=== PATIENT | female | born 1980 | race Caucasian/White ===

== ENCOUNTER 2021-09-12 15:00 | Emergency (ER) | payer OTHER ==
[2021-09-12 16:08] LABS: BILIRUBIN NEGATIVE (NEGATIVE); BLOOD 2+ Ery/uL (NEGATIVE); CLARITY CLEAR (CLEAR); COLOR YELLOW (YELLOW); GLUCOSE (U) NORMAL (NORMAL); LEUKOCYTES 3+ Leu/uL (NEGATIVE); NITRITE NEGATIVE (NEGATIVE); PROTEIN NEGATIVE (NEGATIVE); SPECIFIC GRAVITY <=1.005 (1.001-1.030); UROBILINOGEN 0.2 mg/dL (0.2-1.0); pH 6.5 (5.0-9.0)
[2021-09-12 16:18] LABS: BASOPHIL 0.7 % (0-2); EOSINOPHIL 1.1 % (0-5); HCT 37.8 % (37.0-47.0); HGB 12.7 g/dl (12.5-16.0); LYMPHOCYTE 28.5 % (15-48); MCH 34.9 pg (25.0-31.0); MCHC 33.6 g/dL (32.0-36.0); MCV 103.8 fL (78.0-100.0); MONOCYTE 4.9 % (0-12); MPV 9.1 fL (6.0-9.5); NEUTROPHIL 64.2 % (41-80); NRBC 0; PLT 184 K/uL (150-400); RBC 3.64 M/uL (4.20-5.40); RDW 12.7 % (11.5-14.0); WBC 8.5 K/uL (4.0-10.5)
[2021-09-12 16:23] LABS: BACTERIA 1+; URINARY WBC 20-50
[2021-09-12 16:31] LABS: BILIRUBIN - TOTAL 0.4 mg/dL (0.2-1.0); CREATININE 0.86 mg/dL (0.51-0.95); GLOBULIN (CALCULATION) 3.1 g/dL; TOTAL PROTEIN 7.1 g/dL (6.4-8.2)
[2021-09-12] MEDS ORDERED: BACTRIM DS TAB1 EACH PO (17:01)
== END 2021-09-12 17:20 | disposition home or self-care (01) ==
LOC: FER 15:00
PROVIDERS: Internal Medicine
DX: N39.0 Urinary tract infection, site not specified (principal); N28.1 Cyst of kidney, acquired; N20.0 Calculus of kidney; F17.210 Nicotine dependence, cigarettes, uncomplicated; Z88.5 Allergy status to narcotic agent; Z87.440 Personal history of urinary (tract) infections
CPT/HCPCS: 36415; 80053; 81001; 85025; 87076; 87088; 87186

== ENCOUNTER 2021-11-08 20:59 | Emergency (ER) | payer OTHER ==
[~2021-11-08 20:59] MED LIST: BACTRIM DS TAB1 EACH PO
[2021-11-08 22:39] LABS: BASOPHIL 0.7 % (0-2); BILIRUBIN NEGATIVE (NEGATIVE); BLOOD 3+ Ery/uL (NEGATIVE); CLARITY CLEAR (CLEAR); COLOR YELLOW (YELLOW); EOSINOPHIL 1.1 % (0-5); GLUCOSE (U) NORMAL (NORMAL); HCT 33.1 % (37.0-47.0); HGB 11.2 g/dl (12.5-16.0); LEUKOCYTES NEGATIVE Leu/uL (NEGATIVE); LYMPHOCYTE 23.6 % (15-48); MCH 34.9 pg (25.0-31.0); MCHC 33.8 g/dL (32.0-36.0); MCV 103.1 fL (78.0-100.0); MONOCYTE 5.9 % (0-12); MPV 9.3 fL (6.0-9.5); NEUTROPHIL 68.2 % (41-80); NITRITE NEGATIVE (NEGATIVE); NRBC 0; PLT 188 K/uL (150-400); PROTEIN 1+ mg/dL (NEGATIVE); RBC 3.21 M/uL (4.20-5.40); RDW 13.2 % (11.5-14.0); SPECIFIC GRAVITY 1.025 (1.001-1.030); UROBILINOGEN 0.2 mg/dL (0.2-1.0); WBC 11.4 K/uL (4.0-10.5)
[2021-11-08 22:46] LABS: LACTIC ACID 0.9 mmol/L (0.4-1.9)
[2021-11-08 22:48] LABS: BACTERIA TRACE; URINARY RBC 20-50
[2021-11-08 22:49] LABS: CALCIUM OXALATE CRYSTALS MODERATE
[2021-11-08 22:54] LABS: BUN/CREAT RATIO (CALC) 9.7 RATIO; CREATININE 1.03 mg/dL (0.51-0.95); POTASSIUM 3.4 mmol/L (3.5-5.1)
[2021-11-09] MEDS ORDERED: PERCOCET 10-321 EACH PO (00:46)
[2021-11-09] MEDS ORDERED: ONDANSETRON ODT4 MG PO (00:46)
== END 2021-11-09 01:21 | disposition home or self-care (01) ==
LOC: FER 20:59
PROVIDERS: Nurse Practitioner Family
DX: N13.2 Hydronephrosis with renal and ureteral calculous obstruction (principal); Z88.5 Allergy status to narcotic agent
CPT/HCPCS: 36415; 80048; 81001; 83605; 85025; J3010; J7030